=== PATIENT | male | born 1965 | race Caucasian/White ===

== ENCOUNTER 2020-03-04 22:45 | Inpatient (IN) ==
[2020-03-05 00:04] LABS: Basophils % 0.4 %; Eosinophils % 0.2 %; Hematocrit 36.6 % (37.5-50.1); Hemoglobin 13.3 g/dL (12.9-16.9); Immature Granulocytes % 1.3 % (0-4); Lymphocytes # 0.5 K/mcL (0.6-4.6); Lymphocytes % 5.9 %; Mean Corpuscular HGB Conc 36.3 g/dL (31.6-35.5); Mean Corpuscular Hemoglobin 38.2 pg (28.0-33.3); Mean Corpuscular Volume 105.2 fL (83.0-100.0); Mean Platelet Volume 10.9 fL (9.4-12.4); Monocytes # 0.9 K/mcL (0.0-1.3); Monocytes % 10.7 %; Neutrophils # 6.7 K/mcL (1.6-8.9); Nucleated Red Blood Cells 0.2 /100 WBC (0); Red Blood Count 3.48 M/mcL (4.19-5.50); Segmented Neutrophils % 81.5 %; White Blood Count 8.2 K/mcL (4.3-11.1)
[2020-03-05 00:09] LABS: Platelet Count 75 K/mcL (140-400)
[2020-03-05 00:25] LABS: Alanine Aminotransferase 44 Units/L (7-52); Albumin 3.8 g/dL (3.5-5.7); Albumin/Globulin Ratio 1.2 (1.1-2.2); Alkaline Phosphatase 109 Units/L (34-104); Aspartate Amino Transferase 126 Units/L (13-39); BUN/Creatinine Ratio 27 (6-26); Bilirubin,Total 3.7 mg/dL (0.3-1.0); Blood Urea Nitrogen 29 mg/dL (6-20); Calcium 9.1 mg/dL (8.6-10.3); Carbon Dioxide 15 mEq/L (23-29); Chloride 82 mEq/L (98-107); Globulin 3.3 g/dL (2.4-3.5); Glucose 104 mg/dL (70-105); Osmolality,Calculated 274 (280-300); Potassium 3.2 mEq/L (3.5-5.1); Sodium 129 mEq/L (136-145); Total Protein 7.1 g/dL (6.4-8.9); eGFR For African Americans > 60 (> 60); eGFR For Non-African Americans > 60 (> 60)
[2020-03-05] MEDS ORDERED: 0.9 % Sodium Chloride 1,000 ML IV ONE (00:39)
[2020-03-05] MEDS ORDERED: Naloxone 0.4 MG/ML INJ IVP PRN (02:19)
[2020-03-05] MEDS: 0.9 % Sodium Chloride 1,000 ML IVC SCH ×2 (02:49→12:08)
[2020-03-05 08:24] LABS: Basophils % 0.5 %; Eosinophils % 0.3 %; Hemoglobin 11.6 g/dL (12.9-16.9); Immature Granulocytes % 1.7 % (0-4); Lymphocytes # 0.6 K/mcL (0.6-4.6); Lymphocytes % 7.9 %; Mean Corpuscular HGB Conc 36.3 g/dL (31.6-35.5); Mean Corpuscular Hemoglobin 37.9 pg (28.0-33.3); Mean Corpuscular Volume 104.6 fL (83.0-100.0); Mean Platelet Volume 11.3 fL (9.4-12.4); Monocytes % 12.2 %; Nucleated Red Blood Cells 0.4 /100 WBC (0); Red Blood Count 3.06 M/mcL (4.19-5.50); Red Cell Distribution Width 12.5 % (11.5-14.5); Segmented Neutrophils % 77.4 %; White Blood Count 7.8 K/mcL (4.3-11.1)
[2020-03-05 08:28] LABS: Platelet Count 73 K/mcL (140-400)
[2020-03-05 08:38] LABS: BUN/Creatinine Ratio 31 (6-26); Blood Urea Nitrogen 28 mg/dL (6-20); Calcium 8.5 mg/dL (8.6-10.3); Carbon Dioxide 15 mEq/L (23-29); Chloride 86 mEq/L (98-107); Glucose 65 mg/dL (70-105); Magnesium 1.6 mg/dL (1.6-2.6); Osmolality,Calculated 274 (280-300); Potassium 3.6 mEq/L (3.5-5.1); Sodium 130 mEq/L (136-145); eGFR For African Americans > 60 (> 60); eGFR For Non-African Americans > 60 (> 60)
[2020-03-05] MEDS ORDERED: Ondansetron ODT 4 MG TAB.RAPDIS SL PRN (09:54)
[2020-03-05] MEDS: *HR* LORazepam 2 MG/ML VIAL IVP PRN (09:58)
[2020-03-05] MEDS: Thiamine (B-1) 100 MG, Folic Acid 1 MG, MVI, adult with vitamin K 10 ML in 0.9 % Sodi... IVPB SCH (19:19)
[2020-03-06 04:04] LABS: Bilirubin,Urine Large (Negative); Blood,Urine Small (Negative); Clarity,Urine Clear (Clear); Color,Urine Amber (Yellow); Glucose,Urine (UA) Normal (Normal); Ketones,Urine >=160 mg/dL (Negative); Leukocyte Esterase,Urine Negative (Negative); Nitrite,Urine Negative (Negative); PH,Urine 5.5 pH Units (5.0-8.0); Protein,Urine 30 mg/dL (Neg-Trace)
[2020-03-06 04:29] LABS: Amorphous Sediment,Urine Few per hpf (None-Few); WBC,Urine 0-3 per hpf (0-3)
[2020-03-06 04:54] LABS: Amphetamine Screen,Urine Negative ng/mL (Cutoff=1000); Barbiturate Screen,Urine Negative ng/mL (Cutoff=200); Benzodiazepines Screen,Urine Positive ng/mL (Cutoff=200); Cannabinoid Screen,Urine Negative ng/mL (Cutoff = 50); Cocaine Screen,Urine Negative ng/mL (Cutoff= 300); Opiate Screen,Urine Negative ng/mL (Cutoff=300); Phencyclidine Screen,Urine Negative ng/mL (Cutoff=25)
[2020-03-06] MEDS ORDERED: 0.9 % Sodium Chloride 1,000 ML IVC ONE (09:00)
[2020-03-06 09:27] LABS: BUN/Creatinine Ratio 22 (6-26); Blood Urea Nitrogen 16 mg/dL (6-20); Calcium 8.9 mg/dL (8.6-10.3); Carbon Dioxide 23 mEq/L (23-29); Chloride 91 mEq/L (98-107); Glucose 111 mg/dL (70-105); Osmolality,Calculated 276 (280-300); Potassium 3.2 mEq/L (3.5-5.1); Sodium 132 mEq/L (136-145); eGFR For African Americans > 60 (> 60); eGFR For Non-African Americans > 60 (> 60)
[2020-03-06 09:35] LABS: Basophils % 0.3 %; Eosinophils # 0.1 K/mcL (0.0-0.6); Eosinophils % 1.4 %; Hematocrit 29.7 % (37.5-50.1); Hemoglobin 10.7 g/dL (12.9-16.9); Lymphocytes # 1.4 K/mcL (0.6-4.6); Lymphocytes % 20.8 %; Mean Corpuscular Hemoglobin 37.4 pg (28.0-33.3); Mean Corpuscular Volume 103.8 fL (83.0-100.0); Mean Platelet Volume 11.9 fL (9.4-12.4); Monocytes # 0.9 K/mcL (0.0-1.3); Monocytes % 13.1 %; Nucleated Red Blood Cells 0.6 /100 WBC (0); Red Blood Count 2.86 M/mcL (4.19-5.50); Red Cell Distribution Width 12.2 % (11.5-14.5); Segmented Neutrophils % 60.4 %; White Blood Count 6.5 K/mcL (4.3-11.1)
[2020-03-06 09:36] LABS: Platelet Count 55 K/mcL (140-400)
[2020-03-06 10:25] LABS: % Iron Saturation 83 % (20-55); Iron 123 mcg/dL (65-175); Transferrin 106 mg/dL (203-362)
[2020-03-06 10:44] LABS: Ferritin > 1500 ng/mL (20-250)
[2020-03-06] MEDS: Nicotine 21 MG PATCH.TD24 TD SCH (13:38)
[2020-03-06] MEDS: 0.9 % Sodium Chloride 1,000 ML IVC SCH ×2 (14:49→22:18)
[2020-03-06] MEDS: Thiamine (B-1) 100 MG, Folic Acid 1 MG, MVI, adult with vitamin K 10 ML in 0.9 % Sodi... IVPB SCH (17:52)
[2020-03-06] MEDS: *HR* LORazepam 2 MG/ML VIAL IVP PRN (20:50)
[2020-03-07] MEDS: 0.9 % Sodium Chloride 1,000 ML IVC SCH ×3 (06:16→22:58)
[2020-03-07 07:49] LABS: Basophils % 0.8 %; Eosinophils # 0.1 K/mcL (0.0-0.6); Eosinophils % 1.3 %; Hemoglobin 9.6 g/dL (12.9-16.9); Immature Granulocytes % 2.5 % (0-4); Lymphocytes # 1.2 K/mcL (0.6-4.6); Lymphocytes % 23.3 %; Mean Corpuscular HGB Conc 36.9 g/dL (31.6-35.5); Mean Corpuscular Hemoglobin 38.1 pg (28.0-33.3); Mean Corpuscular Volume 103.2 fL (83.0-100.0); Mean Platelet Volume 11.4 fL (9.4-12.4); Monocytes # 0.7 K/mcL (0.0-1.3); Monocytes % 12.3 %; Neutrophils # 3.2 K/mcL (1.6-8.9); Red Blood Count 2.52 M/mcL (4.19-5.50); Red Cell Distribution Width 11.9 % (11.5-14.5); Segmented Neutrophils % 59.8 %; White Blood Count 5.3 K/mcL (4.3-11.1)
[2020-03-07 07:51] LABS: Platelet Count 66 K/mcL (140-400)
[2020-03-07] MEDS: Nicotine 21 MG PATCH.TD24 TD SCH (08:00)
[2020-03-07 08:02] LABS: BUN/Creatinine Ratio 14 (6-26); Blood Urea Nitrogen 6 mg/dL (6-20); Calcium 8.4 mg/dL (8.6-10.3); Carbon Dioxide 28 mEq/L (23-29); Chloride 94 mEq/L (98-107); Glucose 111 mg/dL (70-105); Osmolality,Calculated 272 (280-300); Potassium 2.6 mEq/L (3.5-5.1); Sodium 132 mEq/L (136-145); eGFR For African Americans > 60 (> 60); eGFR For Non-African Americans > 60 (> 60)
[2020-03-07] MEDS: Thiamine (B-1) 100 MG, Folic Acid 1 MG, MVI, adult with vitamin K 10 ML in 0.9 % Sodi... IVPB SCH (17:27)
[2020-03-08 07:16] LABS: Basophils % 0.6 %; Eosinophils # 0.1 K/mcL (0.0-0.6); Eosinophils % 1.7 %; Hematocrit 27.8 % (37.5-50.1); Immature Granulocytes % 2.5 % (0-4); Lymphocytes % 19.4 %; Mean Corpuscular Hemoglobin 38.2 pg (28.0-33.3); Mean Corpuscular Volume 106.1 fL (83.0-100.0); Mean Platelet Volume 10.4 fL (9.4-12.4); Monocytes # 0.8 K/mcL (0.0-1.3); Monocytes % 14.6 %; Neutrophils # 3.2 K/mcL (1.6-8.9); Red Blood Count 2.62 M/mcL (4.19-5.50); Red Cell Distribution Width 12.5 % (11.5-14.5); Segmented Neutrophils % 61.2 %; White Blood Count 5.3 K/mcL (4.3-11.1)
[2020-03-08 07:33] LABS: Alanine Aminotransferase 44 Units/L (7-52); Albumin 2.9 g/dL (3.5-5.7); Alkaline Phosphatase 147 Units/L (34-104); Aspartate Amino Transferase 117 Units/L (13-39); BUN/Creatinine Ratio 13 (6-26); Bilirubin,Total 1.6 mg/dL (0.3-1.0); Blood Urea Nitrogen 4 mg/dL (6-20); Calcium 8.3 mg/dL (8.6-10.3); Carbon Dioxide 31 mEq/L (23-29); Chloride 99 mEq/L (98-107); Globulin 2.8 g/dL (2.4-3.5); Glucose 109 mg/dL (70-105); Magnesium 1.1 mg/dL (1.6-2.6); Osmolality,Calculated 283 (280-300); Potassium 2.7 mEq/L (3.5-5.1); Sodium 138 mEq/L (136-145); Total Protein 5.7 g/dL (6.4-8.9); eGFR For African Americans > 60 (> 60); eGFR For Non-African Americans > 60 (> 60)
[2020-03-08 07:42] LABS: Platelet Count 95 K/mcL (140-400)
[2020-03-08] MEDS: Nicotine 21 MG PATCH.TD24 TD SCH (08:57)
[2020-03-08] MEDS ORDERED: Ipratropium/Albuterol Neb 3 ML IH PRN (10:10)
[2020-03-08] MEDS: 0.9 % Sodium Chloride 1,000 ML IVC SCH (19:31)
[2020-03-08] MEDS: Magnesium Oxide 400 MG TABLET PO SCH (19:54)
[2020-03-09 08:33] LABS: Alanine Aminotransferase 55 Units/L (7-52); Albumin 3.4 g/dL (3.5-5.7); Alkaline Phosphatase 193 Units/L (34-104); Aspartate Amino Transferase 118 Units/L (13-39); BUN/Creatinine Ratio 16 (6-26); Bilirubin,Total 1.5 mg/dL (0.3-1.0); Blood Urea Nitrogen 6 mg/dL (6-20); Calcium 9.2 mg/dL (8.6-10.3); Carbon Dioxide 33 mEq/L (23-29); Chloride 96 mEq/L (98-107); Globulin 3.4 g/dL (2.4-3.5); Glucose 96 mg/dL (70-105); Magnesium 1.7 mg/dL (1.6-2.6); Osmolality,Calculated 281 (280-300); Potassium 2.9 mEq/L (3.5-5.1); Sodium 137 mEq/L (136-145); Total Protein 6.8 g/dL (6.4-8.9); eGFR For African Americans > 60 (> 60); eGFR For Non-African Americans > 60 (> 60)
[2020-03-09] MEDS: Nicotine 21 MG PATCH.TD24 TD SCH (08:54)
[2020-03-09] MEDS: Magnesium Oxide 400 MG TABLET PO SCH ×2 (08:54→21:02)
[2020-03-09] MEDS ORDERED: Acetaminophen 325 MG TABLET PO PRN (13:58)
[2020-03-10 06:05] LABS: BUN/Creatinine Ratio 18 (6-26); Blood Urea Nitrogen 7 mg/dL (6-20); Calcium 8.8 mg/dL (8.6-10.3); Carbon Dioxide 33 mEq/L (23-29); Chloride 98 mEq/L (98-107); Glucose 109 mg/dL (70-105); Magnesium 1.6 mg/dL (1.6-2.6); Osmolality,Calculated 285 (280-300); Potassium 3.3 mEq/L (3.5-5.1); Sodium 138 mEq/L (136-145); eGFR For African Americans > 60 (> 60); eGFR For Non-African Americans > 60 (> 60)
[2020-03-10] MEDS: Magnesium Oxide 400 MG TABLET PO SCH ×2 (08:55→21:15)
[2020-03-10] MEDS: Nicotine 21 MG PATCH.TD24 TD SCH (08:55)
[2020-03-10] MEDS: Artificial Tears SOLN 15 ML BOTTLE BOTH EYES SCH ×2 (17:03→21:20)
[2020-03-11 08:47] LABS: Basophils # 0.1 K/mcL (0.0-0.2); Basophils % 0.6 %; Eosinophils # 0.1 K/mcL (0.0-0.6); Eosinophils % 1.3 %; Immature Granulocytes % 1.5 % (0-4); Lymphocytes # 1.6 K/mcL (0.6-4.6); Lymphocytes % 15.7 %; Mean Corpuscular HGB Conc 33.3 g/dL (31.6-35.5); Mean Corpuscular Volume 111.1 fL (83.0-100.0); Mean Platelet Volume 12.1 fL (9.4-12.4); Monocytes # 1.4 K/mcL (0.0-1.3); Monocytes % 13.7 %; Platelet Count 227 K/mcL (140-400); Red Cell Distribution Width 14.2 % (11.5-14.5); Segmented Neutrophils % 67.2 %; White Blood Count 10.4 K/mcL (4.3-11.1)
[2020-03-11] MEDS: Magnesium Oxide 400 MG TABLET PO SCH ×2 (08:58→21:28)
[2020-03-11] MEDS: Nicotine 21 MG PATCH.TD24 TD SCH (08:58)
[2020-03-11] MEDS: Artificial Tears SOLN 15 ML BOTTLE BOTH EYES SCH ×4 (09:04→21:30)
[2020-03-11] MEDS: Fluticasone Propionate Nasal 50 MCG/SPRAY BOTTLE NS SCH (09:05)
[2020-03-11 09:22] LABS: BUN/Creatinine Ratio 18 (6-26); Blood Urea Nitrogen 8 mg/dL (6-20); Carbon Dioxide 31 mEq/L (23-29); Chloride 99 mEq/L (98-107); Glucose 99 mg/dL (70-105); Osmolality,Calculated 282 (280-300); Potassium 3.7 mEq/L (3.5-5.1); Sodium 137 mEq/L (136-145); eGFR For African Americans > 60 (> 60); eGFR For Non-African Americans > 60 (> 60)
[2020-03-11 10:20] LABS: Macrocytosis Present (Not Present)
[2020-03-12] MEDS ORDERED: *HR* LORazepam 2 MG/ML VIAL IM PRN (00:38)
[2020-03-12 06:43] LABS: Basophils # 0.1 K/mcL (0.0-0.2); Basophils % 1.1 %; Eosinophils # 0.1 K/mcL (0.0-0.6); Eosinophils % 1.3 %; Hematocrit 31.8 % (37.5-50.1); Hemoglobin 10.7 g/dL (12.9-16.9); Immature Granulocytes % 3.7 % (0-4); Lymphocytes # 1.6 K/mcL (0.6-4.6); Mean Corpuscular HGB Conc 33.6 g/dL (31.6-35.5); Mean Corpuscular Hemoglobin 37.5 pg (28.0-33.3); Mean Corpuscular Volume 111.6 fL (83.0-100.0); Mean Platelet Volume 10.9 fL (9.4-12.4); Monocytes # 1.8 K/mcL (0.0-1.3); Monocytes % 19.6 %; Neutrophils # 5.1 K/mcL (1.6-8.9); Platelet Count 348 K/mcL (140-400); Red Blood Count 2.85 M/mcL (4.19-5.50); Red Cell Distribution Width 14.1 % (11.5-14.5); Segmented Neutrophils % 56.3 %
[2020-03-12 07:05] LABS: BUN/Creatinine Ratio 19 (6-26); Blood Urea Nitrogen 8 mg/dL (6-20); Calcium 8.9 mg/dL (8.6-10.3); Carbon Dioxide 30 mEq/L (23-29); Chloride 100 mEq/L (98-107); Glucose 97 mg/dL (70-105); Osmolality,Calculated 284 (280-300); Potassium 3.8 mEq/L (3.5-5.1); Sodium 138 mEq/L (136-145); eGFR For African Americans > 60 (> 60); eGFR For Non-African Americans > 60 (> 60)
[2020-03-12 07:14] LABS: Macrocytosis Present (Not Present); Platelet Estimate Increased (Normal)
[2020-03-12] MEDS: Nicotine 21 MG PATCH.TD24 TD SCH (08:22)
[2020-03-12] MEDS: Magnesium Oxide 400 MG TABLET PO SCH (08:22)
[2020-03-12] MEDS: Artificial Tears SOLN 15 ML BOTTLE BOTH EYES SCH ×2 (08:31→13:11)
[2020-03-12] MEDS: Fluticasone Propionate Nasal 50 MCG/SPRAY BOTTLE NS SCH (08:31)
[2020-03-12 15:00] VITALS: BP 112/76
== END 2020-03-12 16:30 | DRG 775 ==
LOC: INPPIK 22:45 → EMEROOPIK 22:45 → INPPIK 03-05 02:15
PROVIDERS: ADMIT Family Medicine; ATTEND Family Medicine

== ENCOUNTER 2021-06-12 20:30 | Observation (INO) ==
[2021-06-12 21:13] LABS: INR 1.5; Prothrombin Time 17.4 Seconds (9.4-12.1)
[2021-06-12 21:14] LABS: Basophils % 0.2 %; Eosinophils # 0.1 K/mcL (0.0-0.6); Eosinophils % 0.7 %; Immature Granulocytes % 4.8 % (0-4); Lymphocytes # 2.7 K/mcL (0.6-4.6); Lymphocytes % 21.2 %; Mean Corpuscular HGB Conc 31.5 g/dL (31.6-35.5); Mean Corpuscular Hemoglobin 20.6 pg (28.0-33.3); Mean Corpuscular Volume 65.3 fL (83.0-100.0); Mean Platelet Volume 9.5 fL (9.4-12.4); Monocytes % 7.7 %; Neutrophils # 8.4 K/mcL (1.6-8.9); Nucleated Red Blood Cells 3.2 /100 WBC (0); Platelet Count 273 K/mcL (140-400); Red Cell Distribution Width 27.8 % (11.5-14.5); Segmented Neutrophils % 65.4 %; White Blood Count 12.8 K/mcL (4.3-11.1)
[2021-06-12 21:15] LABS: Activated Partial Thrombo Time 23.8 Seconds (26.0-36.0)
[2021-06-12 21:20] LABS: Hematocrit 11.1 % (37.5-50.1); Hemoglobin 3.5 g/dL (12.9-16.9)
[2021-06-12 21:24] LABS: Alanine Aminotransferase 23 Units/L (7-52); Albumin 3.1 g/dL (3.5-5.7); Albumin/Globulin Ratio 0.9 (1.1-2.2); Alkaline Phosphatase 116 Units/L (34-104); Aspartate Amino Transferase 42 Units/L (13-39); BUN/Creatinine Ratio 37 (6-26); Bilirubin,Direct 1.1 mg/dL (0.0-0.2); Bilirubin,Indirect 1.4 mg/dL (0.0-1.0); Bilirubin,Total 2.5 mg/dL (0.3-1.0); Blood Urea Nitrogen 38 mg/dL (6-20); Calcium 8.4 mg/dL (8.6-10.3); Carbon Dioxide 24 mEq/L (23-29); Chloride 88 mEq/L (98-107); Ethanol < 10 mg/dL (Less than 10); Globulin 3.3 g/dL (2.4-3.5); Glucose 139 mg/dL (70-105); Lipase 148 Units/L (11-82); Osmolality,Calculated 285 (280-300); Potassium 2.9 mEq/L (3.5-5.1); Sodium 132 mEq/L (136-145); Total Protein 6.4 g/dL (6.4-8.9); Troponin I < 0.03 ng/mL (< 0.04); eGFR For African Americans > 60 (> 60); eGFR For Non-African Americans > 60 (> 60)
[2021-06-12] MEDS ORDERED: 0.9 % Sodium Chloride 1,000 ML IVC ONE (21:58)
[2021-06-12] MEDS ORDERED: Potassium Chloride Elixir 20 MEQ/15 ML UDC PO ONE (21:58)
[2021-06-12 22:28] LABS: Anisocytosis 3+ (Not Present); Platelet Estimate Normal (Normal)
[2021-06-12 22:30] LABS: Hypochromasia Present (Not Present); Ovalocytes 1+ (Not Present); Tear Drop Cells 1+ (Not Present)
[2021-06-12 23:38] LABS: Bilirubin,Urine Moderate (Negative); Blood,Urine Trace-lysed (Negative); Clarity,Urine Turbid (Clear); Color,Urine Amber (Yellow); Glucose,Urine (UA) Normal (Normal); Ketones,Urine Trace mg/dL (Negative); Leukocyte Esterase,Urine Large (Negative); Nitrite,Urine Negative (Negative); Protein,Urine 30 mg/dL (Neg-Trace)
[2021-06-12 23:42] LABS: Bacteria,Urine Many per hpf (None-Few); WBC,Urine TNTC per hpf (0-3)
[2021-06-12 23:43] LABS: Squamous Epithelial Cell,Urine Few per hpf (None-Few)
[2021-06-13] MEDS ORDERED: 0.9 % Sodium Chloride 1,000 ML IVC ONE (02:52)
[2021-06-13 04:26] LABS: Basophils % 0.3 %; Eosinophils % 0.4 %; Hematocrit 18.6 % (37.5-50.1); Hemoglobin 6.1 g/dL (12.9-16.9); Immature Granulocytes % 4.9 % (0-4); Lymphocytes # 2.3 K/mcL (0.6-4.6); Mean Corpuscular HGB Conc 32.8 g/dL (31.6-35.5); Mean Corpuscular Volume 76.2 fL (83.0-100.0); Mean Platelet Volume 9.5 fL (9.4-12.4); Monocytes # 0.7 K/mcL (0.0-1.3); Monocytes % 6.3 %; Neutrophils # 7.5 K/mcL (1.6-8.9); Nucleated Red Blood Cells 2.5 /100 WBC (0); Platelet Count 246 K/mcL (140-400); Red Blood Count 2.44 M/mcL (4.19-5.50); Red Cell Distribution Width 27.9 % (11.5-14.5); Segmented Neutrophils % 67.1 %; White Blood Count 11.1 K/mcL (4.3-11.1)
[2021-06-13 04:43] LABS: Potassium 4.3 mEq/L (3.5-5.1)
[2021-06-13 04:57] LABS: BUN/Creatinine Ratio 36 (6-26); Blood Urea Nitrogen 35 mg/dL (6-20); Calcium 7.8 mg/dL (8.6-10.3); Carbon Dioxide 29 mEq/L (23-29); Chloride 93 mEq/L (98-107); Glucose 128 mg/dL (70-105); Osmolality,Calculated 286 (280-300); Sodium 133 mEq/L (136-145); eGFR For African Americans > 60 (> 60); eGFR For Non-African Americans > 60 (> 60)
[2021-06-13 05:07] LABS: Hypochromasia Present (Not Present); Microcytosis Present (Not Present); Ovalocytes 1+ (Not Present); Polychromasia 1+ (Not Present)
[2021-06-13 05:08] LABS: Anisocytosis 2+ (Not Present); Platelet Estimate Normal (Normal); Tear Drop Cells 1+ (Not Present)
[2021-06-13] MEDS ORDERED: 0.9 % Sodium Chloride 500 ML IVC ONE (11:40)
[2021-06-13] MEDS ORDERED: Ibuprofen 400 MG TABLET PO PRN (13:06)
[2021-06-13] MEDS ORDERED: *HR* LORazepam 2 MG/ML VIAL IVP PRN (13:06)
[2021-06-13] MEDS ORDERED: Ondansetron ODT 4 MG TAB.RAPDIS SL PRN (13:06)
[2021-06-13] MEDS ORDERED: Naloxone 0.4 MG/ML INJ IVP PRN (13:06)
[2021-06-13] MEDS ORDERED: Ipratropium/Albuterol Neb 3 ML IH PRN (13:11)
[2021-06-13 16:17] LABS: Hemoglobin 7.1 g/dL (12.9-16.9)
[2021-06-13] MEDS: Budesonide/Formoterol 160/4.5 1 PUFF INH IH SCH (21:06)
[2021-06-14] MEDS ORDERED: cefTRIAXone 2,000 MG in 0.9 % Sodium Chloride Mini Bag 100 ML IVPB SCH (06:00)
[2021-06-14 07:50] LABS: Basophils % 0.4 %; Eosinophils # 0.1 K/mcL (0.0-0.6); Eosinophils % 0.9 %; Hematocrit 19.2 % (37.5-50.1); Hemoglobin 6.4 g/dL (12.9-16.9); Immature Granulocytes % 2.5 % (0-4); Lymphocytes % 25.3 %; Mean Corpuscular HGB Conc 33.3 g/dL (31.6-35.5); Mean Corpuscular Hemoglobin 25.9 pg (28.0-33.3); Mean Corpuscular Volume 77.7 fL (83.0-100.0); Mean Platelet Volume 9.1 fL (9.4-12.4); Monocytes # 0.6 K/mcL (0.0-1.3); Monocytes % 6.9 %; Neutrophils # 5.1 K/mcL (1.6-8.9); Nucleated Red Blood Cells 2.3 /100 WBC (0); Platelet Count 212 K/mcL (140-400); Red Blood Count 2.47 M/mcL (4.19-5.50); Red Cell Distribution Width 25.6 % (11.5-14.5)
[2021-06-14 08:58] LABS: Anisocytosis 3+ (Not Present); Hypochromasia Present (Not Present); Platelet Estimate Normal (Normal); Poikilocytosis 1+ (Not Present); Target Cells 1+ (Not Present)
[2021-06-14] MEDS ORDERED: Thiamine (B-1) 100 MG TABLET PO SCH (09:00)
[2021-06-14] MEDS ORDERED: Folic Acid 1 MG TABLET PO SCH (09:00)
[2021-06-14] MEDS ORDERED: 0.9 % Sodium Chloride 250 ML IVC SCH (09:15)
[2021-06-14 09:19] LABS: Alanine Aminotransferase 21 Units/L (7-52); Albumin 2.8 g/dL (3.5-5.7); Alkaline Phosphatase 115 Units/L (34-104); Aspartate Amino Transferase 36 Units/L (13-39); BUN/Creatinine Ratio 37 (6-26); Bilirubin,Total 1.9 mg/dL (0.3-1.0); Blood Urea Nitrogen 23 mg/dL (6-20); Calcium 7.8 mg/dL (8.6-10.3); Carbon Dioxide 30 mEq/L (23-29); Chloride 98 mEq/L (98-107); Globulin 2.9 g/dL (2.4-3.5); Glucose 117 mg/dL (70-105); Magnesium 1.7 mg/dL (1.6-2.6); Osmolality,Calculated 289 (280-300); Potassium 2.9 mEq/L (3.5-5.1); Sodium 137 mEq/L (136-145); Total Protein 5.7 g/dL (6.4-8.9); eGFR For African Americans > 60 (> 60); eGFR For Non-African Americans > 60 (> 60)
[2021-06-14] MEDS ORDERED: Pantoprazole 40 MG VIAL IVP SCH ×2 (09:24→18:00)
[2021-06-14] MEDS: Budesonide/Formoterol 160/4.5 1 PUFF INH IH SCH (09:35)
[2021-06-14] MEDS ORDERED: Isovue-370 500 ML BOTTLE IVP ONE (10:06)
[2021-06-14] MEDS ORDERED: Octreotide 400 MCG in 0.9 % Sodium Chloride 100 ML IVC SCH (10:15)
[2021-06-14 10:52] VITALS: BP 93/53; PULSE 89; RESP 20; TEMP 98.2; O2SAT 94
[2021-06-14] MEDS ORDERED: Naloxone 0.4 MG/ML INJ ONE (12:45)
== END 2021-06-14 14:50 | disposition short-term general hospital (02) ==
LOC: EMEROOPIK 20:30 → INPPIK 20:30
PROVIDERS: ADMIT Nurse Practitioner Family; ATTEND Nurse Practitioner Family